=== PATIENT | male | born 1960 | race Caucasian/White ===

== ENCOUNTER 2016-10-18 11:07 | Emergency (ER) | payer OTHER ==
[2016-10-18 11:28] VITALS: BP 174/99; PULSE 76; RESP 14; TEMP 98.8; O2SAT 96
--- NOTE | 2016-10-18 11:40 | UCPHY ---
H & P Time Seen by Provider: 10/18/16 11:35 Patient Type: Established HPI/ROS: Chief complaint. Back pain HPI. 55-year-old male with chronic back pain in several previous back surgeries here with pain that the OxyContin does not seem to be helping. He was prescribed OxyContin by Dr. Meraz in August. He says he has been out of town and driving the last 3 weeks. There has been no recent injury. No fever. Not using anti-inflammatories. No radiation to his legs. No leg weakness. No bowel or bladder symptoms. He says he is going to see a new physician on . He would like Percocet. ROS Constitutional. no fever/chills, no weakness Eyes. no problems with vision ENT. no sore throat, no nasal drainage Cardiovascular. no chest pain Respiratory. no shortness of breath, no cough Abdominal. no abdominal pain, no nausea/vomiting, no diarrhea . no problems urinating MS. Low back pain Skin. no rash Lymph. no swollen glands Neuro. no headache, no dizziness, no difficulty walking or with speech Past Medical/Surgical History: Past medical history hypertension, chronic back pain, dyslipidemia spinal fusions Social History: , nonsmoker, no alcohol Smoking Status: Never smoked Physical Exam: General Appearance: Alert well-developed male mild distress vital signs are stable Eyes: Pupils equal and round no pallor or injection. ENT, Mouth: Mucous membranes are moist. Respiratory: There are no retractions, lungs are clear to auscultation. Cardiovascular: Regular rate and rhythm. Gastrointestinal: Abdomen is soft and nontender, no masses, bowel sounds normal. Neurological: Awake and alert, sensory and motor exams grossly normal. Straight leg raising negative at 30 degrees both sides. Deep tendon reflexes are symmetrical. Great toe strength is normal. Sensation is normal Skin: Warm and dry, no rashes. Musculoskeletal: Neck is supple nontender. Healed scars on his low back in diffuse pain across the lumbar area Extremities symmetrical, full range of motion. Psychiatric: Patient is oriented X 3, there is no agitation. Constitutional: Initial Vital Signs Temperature (C) 37.1 C 10/18/16 11:19 Heart Rate 76 10/18/16 11:19 Respiratory Rate 14 10/18/16 11:19 Blood Pressure 174/99 H 10/18/16 11:19 O2 Sat (%) 96 10/18/16 11:19 O2 Delivery Mode Room Air Allergies/Adverse Reactions: No Known Allergies Allergy (Verified 10/18/16 11:18) Home Medications: Medication Instructions Recorded Atorvastatin Calcium [Lipitor 20 07/12/12 mg (RX)] Citalopram [CeleXA 20 MG] 20 mg PO 07/12/12 Lisinopril [Zestril 10 mg (RX)] 10 mg PO DAILY 07/12/12 Tamsulosin HCl [Flomax 0.4 MG (RX)] 07/12/12 Oxycontin 10/18/16 oxyCODONE/APAP 5/325 [Percocet 1 tab PO Q4-6PRN PRN #12 tab 10/18/16 5/325] Medical Decision Making ED Course/Re-evaluation: Patient remains stable. The patient and I discussed treatment plan including he needs to have a physician regulating his medication. I will give him a small amount of Percocet. I have encouraged him to see Dr. Meraz on Thursday for further evaluation and medication. I have encouraged him to keep is new appointment with [facility] this coming . Differential Diagnosis: Chronic pain and he feels that the OxyContin is not helping and would like to try Percocet again. I considered cauda equina syndrome. There may be some narcotic-seeking behavior as well. Departure - Departure Disposition: Home, Routine, Self-Care Clinical Impression: Chronic back pain Qualifiers: Back pain location: low back pain Back pain laterality: bilateral Sciatica presence: without sciatica Qualified Code(s): M54.5 - Low back pain; G89.29 - Other chronic pain Condition: Good Instructions: Chronic Back Pain (ED) Additional Instructions: Ibuprofen 600 mg every 6 hours. Percocet for discomfort. If you run out of Percocet use the OxyContin until your appointment on . I would encourage you to speak to Dr. Meraz on Thursday if you feel you need more Percocet. Return for fever, leg weakness, bowel or bladder symptoms Referrals: NONE *PRIMARY CARE P,. [Primary Care Provider] - As per Instructions [facility] [Outside] - As per Instructions Darío Meraz DO [Doctor of Osteopathy] - As per Instructions Prescriptions: oxyCODONE/APAP 5/325 [Percocet 5/325] 1 tab PO Q4-6PRN PRN #12 tab PRN Reason: Pain, Moderate - PQRS PQRS Measurement: 134: Depression screening and followup, PRIME MD-PHQ2 (12 years and older) Over the last 2 weeks, how often have you been bothered by any of the following problems? 1. Feeling down, depressed, or hopeless? 2. Little interest or pleasure in doing things? Patient answered no to both 1 and 2 130: Documentation of medications. Reviewed all patient medications, doses, route and frequency. 226: Do you smoke? No.
== END 2016-10-18 12:06 | disposition home or self-care (01) ==
LOC: CED 11:07
DX: M54.5 Low back pain (principal); G89.29 Other chronic pain
CPT/HCPCS: 99214-PO; G0463-PO

== ENCOUNTER → 2017-03-26 | Outpatient (CLI) | payer OTHER | LOC: CIMAGING 12:34 | PROVIDERS: ATTEND Internal Medicine Nephrology | DX: N28.1 Cyst of kidney, acquired (principal) | CPT/HCPCS: 76770-PO ==

== ENCOUNTER → 2017-04-27 | Outpatient (CLI) | payer OTHER | LOC: CIMAGING 12:27 | PROVIDERS: ATTEND Physician Assistant Medical | DX: M54.5 Low back pain (principal); M54.6 Pain in thoracic spine; Z98.1 Arthrodesis status | CPT/HCPCS: 72074-PO ==

== ENCOUNTER 2017-05-15 09:52 | Emergency (ER) | payer OTHER ==
[2017-05-15 10:00] VITALS: PULSE 74; RESP 18; TEMP 97.7; O2SAT 97
[2017-05-15 10:01] VITALS: BP 162/103
--- NOTE | 2017-05-15 10:15 | EDPHY ---
H & P Time Seen by Provider: 05/15/17 09:54 HPI/ROS: HPI Back pain, history of chronic back pain. 56-year-old male by private vehicle. This patient has a history of multiple fusion surgeries and hardware placement for treatment of back pain and spinal problems. He presents the emergency department complaining of typical chronic back pain on both sides of his spine from thoracic down to lumbar and being out of his pain medication which is Percocet. He reports that he was seen by what sounds like a chiropractic physician back in February. Manipulation was performed on him and apparently this has exacerbated his chronic back pain. He saw his primary care physician Dr. Root about a week ago for this same problem and she prescribe him 21 Percocet at that time. He ran out of this medication yesterday. He has had no fever. No history of malignancy. No bowel bladder incontinence. Denies any loss of sensation or weakness in his extremities. No history of trauma or fall. No other complaints. ROS: Constitutional: No fever, no chills. No weakness. Eyes: No discharge. No changes in vision. ENT: No sore throat. No nasal congestion or rhinorrhea. Respiratory: No cough. No shortness of breath. Cardiac: No chest pain, no palpitations. Gastrointestinal: No abdominal pain, no vomiting, no diarrhea. Genitourinary: No hematuria. No dysuria or increased frequency with urination. Musculoskeletal: As above. No neck pain. No myalgias or arthralgias. Skin: No rashes. Neurological: No headache. No focal weakness or altered sensation. Past medical history: Hypertension, chronic back pain, history of spinal fusions and hardware placement, dyslipidemia, polycystic kidney disease. He cannot take NSAIDs. Flexeril and other muscle relaxers do not work for him. Social history: Here by himself. Nonsmoker. Denies alcohol. Physical Exam: General Appearance: Alert, mildly anxious, sitting upright in his chair. Appears mildly uncomfortable but not in distress. This patient is responding to questions appropriately and in full sentences. This patient appears well- hydrated and well-nourished. Eyes: Pupils equal and round no pallor or injection. No lid edema, erythema or injection. Back exam: Multiple well-healed surgical scars from his fusion and hardware placement. Vague paraspinal tenderness on palpation bilaterally from mid thoracic down to lower lumbar spine. No soft tissue edema, erythema, warmth or ecchymosis noted. He is neurologically intact in all myotomes in dermatomes of the bilateral lower extremities. Gastrointestinal: Abdomen is soft and nontender, no masses, bowel sounds normal. No focal tenderness at McBurney's point. No Elise sign. Neurological: Motor sensory function is grossly intact. Cranial nerves are normal. Gait is normal. Skin: Warm and dry, no rashes. Musculoskeletal: As above. Extremities are symmetrical. All joints range without pain or impingement. Psychiatric: No agitation. No depression. Database: EKG: Imaging: Procedures: Emergency department course: Previous medical records reviewed. Previous x-rays reviewed. He presents with chronic back pain, no red flags. I discussed pain medication options. He cannot take NSAIDs. He states that muscle relaxers such as Flexeril do not work at all for him. I have agreed to prescribe him Percocet 5-325 14.. Plan will be to have him follow up with his primary care physician or his spinal physician who is in [place] for further pain management and ongoing management of his chronic back pain. Return to emergency department precautions reviewed with him. All of his questions were answered. He was discharged in good condition. Differential Diagnosis: The differential diagnosis on this patient includes but is not limited to chronic back pain. Spinal cord compression syndrome, acute radiculopathy, fracture, subluxation, dislocation, abdominal aortic aneurysm, malignancy unlikely. This represents a partial list of diagnoses considered. These considerations are based on history, physical exam, past history, reassessment and diagnostic testing. Smoking Status: Never smoked Constitutional: Initial Vital Signs Temperature (C) 36.5 C 05/15/17 09:56 Heart Rate 74 05/15/17 09:56 Respiratory Rate 18 05/15/17 09:56 Blood Pressure 162/103 H 05/15/17 09:56 O2 Sat (%) 97 05/15/17 09:56 Allergies/Adverse Reactions: No Known Allergies Allergy (Verified 05/15/17 10:00) Home Medications: Medication Instructions Recorded Tamsulosin HCl [Flomax 0.4 MG (RX)] 07/12/12 oxyCODONE/APAP 5/325 [Percocet 1 tab PO Q4-6PRN PRN #12 tab 10/18/16 5/325] Atorvastatin Calcium 05/15/17 Citalopram 05/15/17 Lisinopril 05/15/17 oxyCODONE/APAP 5/325 [Percocet 1 - 2 tab PO Q4-6PRN PRN #14 tab 05/15/17 5/325 (*)] Departure - Departure Disposition: Home, Routine, Self-Care Clinical Impression: Back pain Condition: Good Instructions: Chronic Back Pain (ED) Additional Instructions: Read and follow provided instructions. Follow-up with your primary care physician or spinal specialist next week for refill of pain medication prescriptions and ongoing management of your chronic back pain. Take medication as prescribed only. [place]/Percocet dosin-2 every 4-6 [address] for [address] Do not drive on this medication. Return to the emergency department for worsening symptoms or other serious concerns. Referrals: Tammie Root [Primary Care Provider] - As per Instructions Prescriptions: oxyCODONE/APAP 5/325 [Percocet 5/325 (*)] 1 - 2 tab PO Q4-6PRN PRN #14 tab PRN Reason: For Moderate To Severe Pain
== END 2017-05-15 10:21 | disposition home or self-care (01) ==
LOC: CED 09:52
DX: M54.6 Pain in thoracic spine (principal); M54.5 Low back pain; I10 Essential (primary) hypertension

== ENCOUNTER → 2018-09-09 | Outpatient (CLI) | payer OTHER | LOC: CIMAGING 11:08 → EDSTATUS 12:33 | PROVIDERS: ATTEND Family Medicine | DX: R06.00 Dyspnea, unspecified (principal); R05 Cough; R91.8 Other nonspecific abnormal finding of lung field | CPT/HCPCS: 71046-PO ==